=== PATIENT | male | born 1985 | race Caucasian/White ===

== ENCOUNTER 2023-01-01 17:21 | Emergency (ER) | payer SELFPAY ==
[2023-01-01 17:22] VITALS: BP 147/96; PULSE 104; RESP 16; TEMP 36.4; O2SAT 100; BMI 32.1
[2023-01-01 17:32] VITALS: BP 148/89; PULSE 96; RESP 10; O2SAT 96
--- NOTE | 2023-01-01 17:58 | EDS_ITS ---
HPI History of Present Illness Chief Complaint: Dizziness Informant: patient Onset/Context/Timing Onset: Hours (5-6) Context: Sudden Onset Timing: Intermittent and Lasts (1-2 min) Quality: Lightheaded Current Severity: Gone Maximum Severity: Moderate Worsened by: Nothing in particular Relieved by: Nothing spontaneously abates Associated Symptoms Associated Symptoms: A little short of breath, diffuse facial pressure/tingling Narrative Narrative: Patient been having episodes of lightheadedness, no vertiginous symptoms, but no syncope or near syncope, in the past several hours. He has had multiple episodes, somewhere between 5 and 10. He states he had an episode or 2 about a week ago as well. Otherwise never had this before. Associated mild dyspnea, if he walks the dyspnea seems worse, but when the lightheaded resolves the dyspnea resolves as well. No chest discomfort at all. No discomfort into his back, just into his face which feels like pressure/tingling, he states it feels very weird. He does not feel any palpitations or racing heartbeat when this happens. He is healthy, he is not a drug user, he takes no prescriptions for anything. No recent travel, immobilization, hospitalization, recent illness or head injury, no leg pain or swelling, no history of DVT or PE, no recent surgeries. PFSH PFSH Medical History no medical history no medical history Home Medications NK 01/01/23 [History Last Taken Unknown] Allergy/AdvReac Type Severity Reaction Status Date / Time Penicillins Allergy Hives Verified 01/01/23 17:32 Surgical History (Updated 01/01/23 @ 18:[address] Wang Green MD) History of orthopedic surgery Social History Smoking Status: Current every day smoker tobacco type: cigarettes ROS ROS ED Constitutional Constitutional ED: Denies chills or fever(s) Eyes Eyes: Denies change in vision or diplopia ENT ENT ED: Denies rhinorrhea or sore throat Cardiovascular Cardiovascular: Reports as per HPI and lightheadedness; Denies chest pain, palpitations or syncope Respiratory/Chest Respiratory/Chest: Reports as per HPI and dyspnea; Denies cough Gastrointestinal Gastrointestinal: Denies abdominal pain, diarrhea, nausea or vomiting Genitourinary Genitourinary ED: Denies dysuria or hematuria Musculoskeletal Musculoskeletal: Denies back pain or neck pain Integumentary Denies abscess or rash Neurologic Neurologic: Denies headache(s), paresthesias or weakness Psychiatric Psychiatric: Denies anxiety or suicidal thoughts EXAM Physical Exam Const Vital Signs: 01/01/23 17:22 01/01/23 17:32 01/01/23 17:32 Temperature 97.5 F L Temperature Source Temporal Pulse Rate 104 H 96 Respiratory Rate 16 10 L Respiratory Effort Normal Non-Labored Respiratory Pattern Normal Blood Pressure 147/96 H 148/89 H Blood Pressure Mean 113 108 Pulse Ox 100 96 Oxygen Delivery Method Room Air Room Air 01/01/23 19:48 Temperature Temperature Source Pulse Rate 93 Respiratory Rate 16 Respiratory Effort Respiratory Pattern Blood Pressure 124/75 H Blood Pressure Mean 91 Pulse Ox 97 Oxygen Delivery Method Room Air Positive well nourished and well developed General Appearance ED: well developed and NAD HEENT Reports moist mucous membranes normocephalic and atraumatic Eyes PERRL and EOMs intact bilaterally Neck full ROM, no lymphadenopathy, supple and no JVD Resp normal respiratory effort and clear to auscultation bilaterally Cardio regular rate, regular rhythm and no murmurs Rate: tachycardic GI non-tender and non-distended Auscultation: normoactive bowel sounds Palpation: soft Back/Spine no CVA tenderness General Back: other FROM Extremity normal to inspection, no calf tenderness and no pedal edema General Extremety ED: Negative for edema, pulses abnormal or tenderness General Extremity: Negative for edema or pulses abnormal Neuro oriented x3, CN's II-XII intact bilaterally and no sensory deficits noted Sensorium / Orientation: awake and alert Motor Exam: strength 5/5 throughout Skin no rashes or lesions noted and no wounds MDM MDM MDM Narrative Medical decision making narrative: Patient was monitored here for several hours while we obtained a cardiopulmonary work-up including a D-dimer which was well within normal limits. Other than a mild nonspecific leukocytosis, the rest of the work-up was normal. 2 view chest x-ray my interpretation normal with narrow mediastinum, radiology in agreement. Troponin well within normal limits, EKG normal. The patient did have 1 episode of lightheadedness while he was here. He noted the time which we asked him to do. I matched this up with the telemetry data, and he drops his heart rate into the low 60s from the 110 range for 10-20 seconds. There was no obvious ectopy, dropped beats, or signs of an AV block. The etiology of this is unknown, but certainly I see nothing dangerous clinically or on ancillary testing. Even looking at the T waves there do not appear to be any clearly buried P waves that are nonconducted although that could be in the differential because of his rate approximately dropping in half although it was a gradual slowing down to 60s and gradual speeding back up. At this time I think it would be reasonable to discharge him home on a Holter monitor, and have him follow-up with cardiology after turning in the 48-hr monitor. Lab Data Attestation: I reviewed the patient's lab results. Labs: Laboratory Results - last 24 hr 01/01/23 01/01/23 01/01/23 18:23 18:23 18:23 WBC 13.5 H RBC 5.64 Hgb 16.8 H Hct 49.9 MCV 88.5 MCH 29.8 MCHC 33.7 RDW Std Deviation 42.8 RDW Coeff of Kaley 13.1 Plt Count 215 MPV 9.8 Immature Gran % (Auto) 0.500 Neut % (Auto) 73.6 H Lymph % (Auto) 19.4 [place] % (Auto) 3.8 Eos % (Auto) 2.0 Baso % (Auto) 0.7 Absolute Neuts (auto) 10.0 H Absolute Lymphs (auto) 2.62 Nucleated RBC % 0 D-Dimer Quant (PE/DVT) < 0.27 L Sodium 134 L Potassium 4.0 Chloride 100 Carbon Dioxide 26.0 Anion Gap 8 BUN 18 Creatinine 0.97 Estim Creat Clear Calc 99.38 Est GFR (MDRD) Af Amer 113 Est GFR (MDRD) Non-Af 94 BUN/Creatinine Ratio 18.6 Glucose 112 H Calcium 9.1 Troponin I High Sens 4 Radiography Diagnostic Testing: Clinical Impression(s) from Imaging Studies Chest X-Ray 01/01/23 18:40 IMPRESSION: No acute cardiopulmonary disease. Electronically Signed: Bulmaro Fitzgerald DO at 18:49 EDT Reading Location ID and State: [address] [place] [address] Tel [phone], Service support , Rhythm Strip Rhythm Strip: Sinus Tach Rate: 110 Ectopy: None EKG Initial EKG: Attestation: I personally reviewed and interpreted this EKG as follows: Interpretation: Sinus Rhythm (rate 99) and No Acute Injury Pattern Comments: normal EKG Differential Diagnosis Chest pain/SOB: pulmonary embolism, ACS and aortic dissection Reason(s) Aortic dissection less likely:: Positive for normal vascular exam, no history of HTN, normal neurological exam, no significant risk factors for dissection, no widened mediastinum on CXR, no ripping/tearing pain, no pain to back and blood pressure appropriate in ED Differential Diagnosis: paroxysmal cardiac dysrrhythmia and/or ectopy Discharge Plan Triage Chief Complaint: Dizziness ED Provider: Wang Green Dx/Rx/DC Orders Clinical Impression: Symptomatic sinus bradycardia Instructions: ED Bradycardia Prescriptions: No Action NK Primary Care Provider: Care Physician,No Primary Referrals: Farhat Cochran MD [Med Staff - Active Staff] - (or first available blueberry grower) Disposition Disposition: Home, Self Care
[2023-01-01 18:38] LABS: Absolute Lymphocyte Count 2.62 X10^3/uL (0.83-4.51); Basophil# 0.09 X10^3/uL; Basophil% 0.7 % (0-1); Eosinophil# 0.27 X10^3/uL; Hematocrit 49.9 % (40-54); Hemoglobin 16.8 g/dL (13.0-16.5); Lymphocyte # 2.62 X10^3/ul (0.83-4.51); Lymphocyte % 19.4 % (19-41); Mean Corp Hgb Conc 33.7 g/dL (32-36); Mean Corpuscular Hgb 29.8 pg (27.0-32.0); Mean Corpuscular Volume 88.5 fL (80-94); Mean Platelet Vol. 9.8 fl (6.2-12.0); Monocyte# 0.51 X10^3/uL; Monocyte% 3.8 % (0-10); NRBC Flagged by Analyzer 0 % (0-5); Neutrophil # 9.96 X10^3/uL (2.7-7.7); Neutrophil % 73.6 % (47-70); Platelet Count 215 K/mm3 (150-450); RBC Distribution Width CV 13.1 % (11.6-14.6); RBC Distribution Width SD 42.8 fl (35.1-43.9); Red Blood Count 5.64 M/mm3 (4.6-6.2); White Blood Count 13.5 K/mm3 (4.4-11.0)
--- NOTE | 2023-01-01 18:40 | RAD_ITS ---
STUDY: X-RAY CHEST REASON FOR EXAM: Male, 37 years old. Dyspnea. Episodes of dizziness and labored breathing beginning at 1200 hours today. These last for approximately 1 minute with diaphoresis. Similar episodes 6 days ago. TECHNIQUE: PA and lateral views of the chest. COMPARISON: None. FINDINGS: The lungs are clear and expanded. There is no demonstrated pleural abnormality. Normal size heart. Normal mediastinum and stacia. Normal visualized pulmonary arteries. Normal visualized aortic arch and descending thoracic aorta. Normal visualized thoracic spine. Normal visualized ribs, clavicles, and shoulders. There is no demonstrated abnormality of the visualized soft tissue structures of the upper abdomen. RAD/Chest PA and Lateral IMPRESSION: No acute cardiopulmonary disease. Electronically Signed: Blumaro Fitzgerald DO at 18:49 EDT ,
[2023-01-01 18:53] LABS: D-Dimer Quantitative (DVT/PE) < 0.27 FEU/ug/m (0.27-0.49)
[2023-01-01 18:59] LABS: Anion Gap 8 (5-15); BUN 18 mg/dL (7-18); BUN/Creat Ratio 18.6 RATIO (10-20); Calcium,Total 9.1 mg/dL (8.5-10.1); Chloride 100 mmol/L (98-107); Creatinine, Serum 0.97 mg/dL (0.70-1.30); EST Glomerular Filtration Rate 94 mL/min (>60); Est Glom Filt Rate - Afr Amer 113 mL/min (>60); Estimated Creatinine Clearance 99.38 ml/min; Glucose 112 mg/dL (74-106); Sodium Level 134 mmol/L (136-145); Troponin-I HS 4 pg/mL (3.0-78.0)
[2023-01-01 19:48] VITALS: BP 124/75; PULSE 93; RESP 16; O2SAT 97
[2023-01-01 20:48] VITALS: BP 138/79; PULSE 68; RESP 18; O2SAT 100
== END 2023-01-01 21:11 | disposition home or self-care (01) ==
PROVIDERS: Emergency Provider Emergency Medicine; Visit Provider Emergency Medicine
DX: R00.1 Bradycardia, unspecified (principal); R42 Dizziness and giddiness; F17.210 Nicotine dependence, cigarettes, uncomplicated
CPT/HCPCS: 71046; 80048; 84484; 85025; 85379; 93005; 99284; A4216

== ENCOUNTER → 2023-01-01 | Outpatient (CLI) | payer SELFPAY | END | disposition home or self-care (01) | LOC: CVS 20:23 | PROVIDERS: Visit Provider Emergency Medicine | DX: R00.1 Bradycardia, unspecified (principal) | CPT/HCPCS: 93225; 93226 ==